=== PATIENT | male | born 1975 | race Caucasian/White ===

== ENCOUNTER 2017-03-25 19:27 | Emergency (ER) | payer OTHER ==
[~2017-03-25] VITALS: Ht 165.1 cm; Wt 65.5 kg
[2017-03-25 19:31] VITALS: Ht 165.1 cm; Wt 65.5 kg
[2017-03-25] MEDS ORDERED: IBUPROFEN 600 MG TAB PO ONE (20:00)
--- NOTE | 2017-03-25 20:18 | RADRPT ---
PROCEDURE: XR Ankle. CLINICAL INDICATION: Trauma TECHNIQUE: 3 views of the right ankle were performed. COMPARISON: None. FINDINGS: There is no acute fracture or dislocation. The ankle mortise is intact. There is no significant tiarra int effusion. The soft tissues are unremarkable. RPTAT: QQ IMPRESSION: No acute bony abnormality. .Ana Maria Giles MD, MD Date Time Electronically viewed and signed by .Ana Maria Giles MD, on 03/25/2017 20:18 .T/
[2017-03-25] MEDS ORDERED: IBUP-1542 PO (20:21)
--- NOTE | 2017-03-25 20:24 | ERD ---
ER Documentation Chief Complaint Date/Time DATE: 03/25/17 TIME: 20:23 Chief Complaint r ankle pain sp fall last night, + distal cms, some swelling noted unable HPI Patient is a 42-year-old male who has right ankle pain after he fell and twisted it last night. He is ambulatory. He has been icing and he says he wrapped his ankle at home. He denies any head injury or KO. Denies any numbness or tingling. Pain is 8 out of 10 throbbing nonradiating over the lateral malleolus. ROS All systems reviewed and are negative except as per history of present illness. Medications Home Meds Active Scripts Ibuprofen* (Motrin*) 600 Mg Tab, 600 MG PO Q6, #30 TAB Prov:GENI MCDONALD PA-C 03/25/17 Allergies Allergies: Coded Allergies: No Known Allergy (Unverified , 03/25/17) PMhx/Soc Medical and Surgical Hx: pt denies Medical Hx, pt denies Surgical Hx History of Surgery: No Anesthesia Reaction: No Hx Neurological Disorder: No Hx Respiratory Disorders: No Hx Cardiac Disorders: No Hx Psychiatric Problems: No Hx Miscellaneous Medical Probl: No Hx Alcohol Use: No Hx Substance Use: No Hx Tobacco Use: No Smoking Status: Never smoker FmHx Family History: No diabetes Physical Exam Vitals Vital Signs Date Time Temp Pulse Resp B/P Pulse Ox O2 Delivery O2 Flow Rate FiO2 03/25/17 19:31 98.6 86 18 150/89 98 Physical Exam General: well developed, well nourished, alert, nontoxic, no distress Head: normocephalic, atraumatic Respiratory: Clear to auscaultation bilaterally, speaks in full sentences, no use of accesory muscles or labored breathing, no rales, ronchi, or wheezing Cardiovascular: RRR, No murmurs Extremities: Right ankle has 1+ edema and mild tenderness to palpation over the lateral malleolus, no bony abnormalities, pedal pulse 2+, capillary refill less than 2 seconds, sensation to light touch is intact, patient is ambulatory. Results 24 hrs Current Medications Medications (Trade) Dose Ordered Sig/Silva Route PRN Reason Start Time Stop Time Status Last Admin Dose Admin Ibuprofen (Motrin) 600 mg ONCE ONCE PO 03/25/17 20:00 03/25/17 20:01 DC 03/25/17 19:53 Procedures/MDM Patient has ankle pain after fall yesterday. He is ambulatory and neurovascularly intact. He was given Motrin for pain control and x-ray was ordered which is unremarkable. His ankle was Darwin wrap and he was given crutches. Recommended this patient follow up with her primary care doctor within 48 hours or return to the emergency room for any worsening of symptoms. However this time I do believe there is suitable for outpatient management. I answered all their questions and they agreed with the plan and were discharged home. Departure Diagnosis: Primary Impression: Ankle sprain Condition: Stable Patient Instructions: Treating Ankle Sprains Additional Instructions: Call your primary care doctor TOMORROW for an appointment during the next 1-2 days.See the doctor sooner or return here if your condition worsens before your appointment time. GENI MCDONALD PA-C Mar 25, 2017 20:24
== END 2017-03-25 20:41 | disposition home or self-care (01) ==
LOC: FTE 19:27
DX: S93.401A Sprain of unspecified ligament of right ankle, initial encounter (principal); W18.39XA Other fall on same level, initial encounter; Y92.9 Unspecified place or not applicable